=== PATIENT | male | born 1975 | race Caucasian/White ===

== ENCOUNTER 2018-03-11 04:29 | Emergency (ER) | payer SELFPAY ==
[~2018-03-11] VITALS: Ht 180.3 cm; Wt 70.3 kg
[2018-03-11 04:22] VITALS: BP 142/84
[~2018-03-11 04:29] MED LIST: GABAPENTIN800 MG ORAL; LEXAPRO20 MG ORAL; VICODIN ES 7.51 EAC1 ORAL
[2018-03-11 04:30] VITALS: BP 138/80
[2018-03-11] MEDS ORDERED: HydrOXYzine 50mg tab ORAL ONE (04:45)
[2018-03-11] MEDS ORDERED: VISTARIL50 MG ORAL (04:50)
[2018-03-11] MEDS ORDERED: IBUPROFEN600 MG ORAL (04:50)
--- NOTE | 2018-03-11 04:50 | Emergency Room Report ---
History of Present Illness General Chief Complaint: Pain Source: Patient Present Illness HPI This a 42-year-old male with no past medical history. He has a history of anxiety. He presents with 2 complaints. First he complaining of right foot pain. EMS picked him up from the street. He claimed that he lives in [place]. He's been walking for several days and developed blister to his feet. Now is very painful. They localized to the right foot. No nausea no vomiting. Worse with walking. Better with rest. Also claimed that he is anxious and has anxiety. Out of his Ativan. He claimed that last prescription was from [place] 2 months ago. Denies any fever chills but denies suicidal thoughts or homicidal thought. No other complaint. Allergies: Coded Allergies: No Known Allergies (Unverified , 03/11/18) Patient History Past Medical History: see triage record, old chart reviewed, psych hx Past Surgical History: other Pertinent Family History: none Social History: Denies: smoking Immunizations: other Reviewed Nursing Documentation: PMH: Agreed; PSxH: Agreed Nursing Documentation-PMH Past Medical History: No History, Except For Hx Neurological Problems: Yes - anxiety Review of Systems Eye: Denies: eye pain, blurred vision ENT: Denies: ear pain, nose congestion, throat swelling Respiratory: Denies: cough, shortness of breath Cardiovascular: Denies: chest pain, palpitations Gastrointestinal: Denies: abdominal pain, diarrhea, nausea, vomiting Musculoskeletal: Reports: muscle pain; Denies: back pain, joint pain Skin: Denies: rash Psychiatric: Reports: anxiety Neurological: Denies: headache, numbness Endocrine: Denies: increased thirst, increased urine Hematologic/Lymphatic: Denies: easy bruising All Other Systems: negative except mentioned in HPI Physical Exam Vital Signs Date Time Temp Pulse Resp B/P (MAP) Pulse Ox O2 Delivery O2 Flow Rate FiO2 03/11/18 04:22 98.8 80 16 142/84 98 Room Air vitals normal Sp02 EP Interpretation: reviewed, normal General Appearance: well appearing, no apparent distress, alert, other - unkempt Head: normocephalic, atraumatic Eyes: bilateral eye PERRL, bilateral eye EOMI ENT: hearing grossly normal, normal pharynx Neck: full range of motion, supple, no meningismus Respiratory: chest non-tender, lungs clear, normal breath sounds Cardiovascular #1: regular rate, rhythm, no murmur Gastrointestinal: normal bowel sounds, non tender, no mass, no organomegaly, no bruit, non-distended Musculoskeletal: back normal, gait/station normal, normal range of motion, other - Right foot: He has an area of skin denudement of the blister to the ball of his foot. No infection. No drainage. Pulses normal. Psychiatric: mood/affect normal Skin: warm/dry Medical Decision Making Diagnostic Impression: Primary Impression: Blister of foot without infection Qualified Codes: S90.821A - Blister (nonthermal), right foot, initial encounter Additional Impression: Anxiety ER Course Patient presents with blister to his foot. No infection or necrotizing fasciitis. Even know he claimed to be anxious he's very calm. No pressure speech. No patient that I would not prescribe refill on benzo. Last Vital Signs Date Time Temp Pulse Resp B/P (MAP) Pulse Ox O2 Delivery O2 Flow Rate FiO2 03/11/18 04:22 98.8 80 16 142/84 98 Room Air Status: improved Disposition: HOME, SELF-CARE Condition: Stable Scripts Hydroxyzine Pamoate* (VISTARIL*) 50 Mg Capsule 50 MG ORAL EVERY 6 HOURS, #20 TAB 0 Refills Prov: Juan Razo MD 03/11/18 Ibuprofen* (MOTRIN*) 600 Mg Tablet 600 MG ORAL THREE TIMES A DAY, #30 TAB 0 Refills Prov: Juan Razo MD 03/11/18 Additional Instructions: Abstain from drugs and alcohol. Elevate foot. Follow-up with your doctor in 7 days. Use crutches as needed. Return if symptom worsen. Juan Razo MD Mar 11, 2018 04:50
== END 2018-03-11 05:00 | disposition home or self-care (01) ==
LOC: EDBD 04:29 → EMR 04:50
DX: S90.821A Blister (nonthermal), right foot, initial encounter (principal); F41.9 Anxiety disorder, unspecified; X58.XXXA Exposure to other specified factors, initial encounter; Y92.9 Unspecified place or not applicable
CPT/HCPCS: 99283

== ENCOUNTER 2019-01-02 22:21 | Emergency (ER) | payer OTHER ==
[~2019-01-02] VITALS: Ht 180.3 cm; Wt 65.8 kg
[~2019-01-02 22:21] MED LIST changes: +IBUPROFEN600 MG ORAL; +VISTARIL50 MG ORAL
[2019-01-02 23:00] VITALS: BP 116/68
--- NOTE | 2019-01-02 23:00 | NUR ---
ED Nurse Note: Recieved pt BIBA with c/o suicidal ideations, tp states he attempted to run in front of bus, pt states he is going through divorce after 18 yrs of marriage and having hard time, denies homicidal ideations, hallucinations of any kind or any other complains or discomforts, pt tearing when talking, denies any previous psych history, pt gowned and placed close to nurses station and palced on suicidal precautins, will resume care as ordered and clsoely monitor.
--- NOTE | 2019-01-02 23:04 | NUR ---
ED Nurse Note: ALL OF PT BELONGINGS PLACED IN LOCKER #2. PRIMARY RN NOTIFIED.
[2019-01-03] MEDS ORDERED: DiphenhydrAMINE 50mg/ml Inj IVP ONE (00:15)
[2019-01-03] MEDS ORDERED: LORazepam Inj 2mg/ml 1ml IV ONE (00:15)
[2019-01-03] MEDS ORDERED: LORazepam Inj 2mg/ml 1ml ONE (00:29)
[2019-01-03] MEDS ORDERED: DiphenhydrAMINE 50mg/ml Inj ONE (00:30)
[2019-01-03 00:49] LABS: BASOPHILS % (AUTO) 2.6 % (0.0-2.0); EOSINOPHILS % (AUTO) 0.4 % (0.0-3.0); HEMATOCRIT 34.9 % (42.0-52.0); HEMOGLOBIN 11.2 G/DL (14.2-18.0); LYMPHOCYTES % (AUTO) 40.9 % (20.0-45.0); MEAN CORPUSCULAR VOLUME 91 FL (80-99); MONOCYTES % (AUTO) 13.6 % (1.0-10.0); NEUTROPHILS % (AUTO) 42.5 % (45.0-75.0); PLATELET COUNT 622 K/UL (150-450); RED BLOOD COUNT 3.83 M/UL (4.70-6.10); RED CELL DISTRIBUTION WIDTH 16.8 % (11.6-14.8); WHITE BLOOD COUNT 11.1 K/UL (4.8-10.8)
[2019-01-03 00:59] LABS: ANION GAP 6 mmol/L (5-15); BLOOD UREA NITROGEN 6 mg/dL (7-18); CALCIUM 9.5 MG/DL (8.5-10.1); CARBON DIOXIDE 30 MMOL/L (21-32); CHLORIDE 104 MMOL/L (98-107); CREATININE 0.9 MG/DL (0.55-1.30); POTASSIUM 3.8 MMOL/L (3.5-5.1); SODIUM 140 MMOL/L (136-145)
[2019-01-03 01:03] LABS: ALANINE AMINOTRANSFERASE 29 U/L (12-78); ALBUMIN/GLOBULIN RATIO 0.7 (1.0-2.7); ALKALINE PHOSPHATASE 107 U/L (46-116); ASPARTATE AMINO TRANSFERASE 25 U/L (15-37); BILIRUBIN,TOTAL 0.2 MG/DL (0.2-1.0)
[2019-01-03 02:00] VITALS: BP 121/64
--- NOTE | 2019-01-03 02:00 | NUR ---
ED Nurse Note: MEDS GIVEN EFFECTIVE, PT IN BED RESTING QUIETLY, CALM AND COOPERATIVE, IV SITE PATENT, NO CP, NO SOB OR LABORED BREATHING, REMAINS ON SUICIDAL PRECAUTIONS, NO CHANGES OR ATTEMPTS MADE, WILL CONTINUE TO MONITOR WHILE WAITING FOR MEDICAL CLEARANCE.
--- NOTE | 2019-01-03 02:35 | Emergency Room Report ---
History of Present Illness General Chief Complaint: Suicidal Source: Patient Present Illness HPI Patient presents with complaints of suicidal ideation he reports that he was thinking about jumping in front of a car Patient reports that he has been dealing with a lot of Stresses in his life including recent divorce he also reports that his brother had committed suicide Denies any chest pain denies any abdominal pain denies any back or flank pain Allergies: Coded Allergies: No Known Allergies (Unverified , 03/11/18) Patient History Past Medical History: see triage record Reviewed Nursing Documentation: PMH: Agreed; PSxH: Agreed Nursing Documentation-PMH Past Medical History: No History, Except For History Of Psychiatric Problem: Yes - DEPRESSION Hx Neurological Problems: Yes - anxiety Review of Systems All Other Systems: negative except mentioned in HPI Physical Exam Vital Signs Date Time Temp Pulse Resp B/P (MAP) Pulse Ox O2 Delivery O2 Flow Rate FiO2 01/02/19 22:34 98.2 134 16 116/68 (84) 98 Room Air Sp02 EP Interpretation: reviewed, normal General Appearance: well appearing, no apparent distress Head: normocephalic, atraumatic Eyes: bilateral eye PERRL, bilateral eye EOMI ENT: hearing grossly normal, normal pharynx, TMs + canals normal, uvula midline Neck: full range of motion, supple, no meningismus, no bony tend Respiratory: lungs clear, normal breath sounds, no rhonchi, no respiratory distress, no retraction, no accessory muscle use Cardiovascular #1: normal peripheral pulses, regular rate, rhythm, no edema, no gallop, no JVD, no murmur Gastrointestinal: normal bowel sounds, non tender, soft, no mass, no organomegaly, non-distended, no guarding, no hernia, no pulsatile mass, no rebound Genitourinary: no CVA tenderness Musculoskeletal: normal inspection Neurologic: oriented x3, responsive, 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 III-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 nml as tested, motor strength/ tone normal, sensory intact Psychiatric: mood/affect normal Skin: no rash Lymphatic: normal inspection, no adenopathy Medical Decision Making Diagnostic Impression: Primary Impression: Suicidal ideation Additional Impression: Medical clearance for psychiatric admission ER Course Given the patient's history and presentation extensive blood work and urine test is performed patient has further IV hydration as well Given the findings patient is found to be medically clear and stable patient had multiple Urine drug screen positive otherwise remains at this time hemodynamically stable and is appropriate for further Psychiatric evaluation Labs Test 01/03/19 00:03 01/03/19 00:21 Urine Opiates Screen Negative (NEGATIVE) Urine Barbiturates Screen Positive (NEGATIVE) Phencyclidine (PCP) Screen Negative (NEGATIVE) Urine Amphetamines Screen Positive (NEGATIVE) Urine Benzodiazepines Screen Positive (NEGATIVE) Urine Cocaine Screen Negative (NEGATIVE) Urine Marijuana (THC) Screen Positive (NEGATIVE) White Blood Count 11.1 K/UL (4.8-10.8) Red Blood Count 3.83 M/UL (4.70-6.10) Hemoglobin 11.2 G/DL (14.2-18.0) Hematocrit 34.9 % (42.0-52.0) Mean Corpuscular Volume 91 FL (80-99) Mean Corpuscular Hemoglobin 29.3 PG (27.0-31.0) Mean Corpuscular Hemoglobin Concent 32.2 G/DL (32.0-36.0) Red Cell Distribution Width 16.8 % (11.6-14.8) Platelet Count 622 K/UL (150-450) Mean Platelet Volume 4.7 FL (6.5-10.1) Neutrophils (%) (Auto) 42.5 % (45.0-75.0) Lymphocytes (%) (Auto) 40.9 % (20.0-45.0) Monocytes (%) (Auto) 13.6 % (1.0-10.0) Eosinophils (%) (Auto) 0.4 % (0.0-3.0) Basophils (%) (Auto) 2.6 % (0.0-2.0) Sodium Level 140 MMOL/L (136-145) Potassium Level 3.8 MMOL/L (3.5-5.1) Chloride Level 104 MMOL/L (98-107) Carbon Dioxide Level 30 MMOL/L (21-32) Anion Gap 6 mmol/L (5-15) Blood Urea Nitrogen 6 mg/dL (7-18) Creatinine 0.9 MG/DL (0.55-1.30) Estimat Glomerular Filtration Rate > 60 mL/min (>60) Glucose Level 84 MG/DL (74-106) Calcium Level 9.5 MG/DL (8.5-10.1) Total Bilirubin 0.2 MG/DL (0.2-1.0) Aspartate Amino Transf (AST/SGOT) 25 U/L (15-37) Alanine Aminotransferase (ALT/SGPT) 29 U/L (12-78) Alkaline Phosphatase 107 U/L (46-116) Total Protein 7.6 G/DL (6.4-8.2) Albumin 3.0 G/DL (3.4-5.0) Globulin 4.6 g/dL Albumin/Globulin Ratio 0.7 (1.0-2.7) Salicylates Level 6.1 ug/mL (2.8-20) Acetaminophen Level < 2 MCG/ML (10-30) Serum Alcohol 24 mg/dL Last Vital Signs Date Time Temp Pulse Resp B/P (MAP) Pulse Ox O2 Delivery O2 Flow Rate FiO2 01/02/19 23:00 98.2 16 116/68 98 Room Air 01/02/19 23:00 134 Status: improved Disposition: XFER TO PSYCH HOSP/UNIT Condition: Improved Referrals: [facility],REFERRING (PCP) Abundio Moses DO Jan 03, 2019 02:35
[2019-01-03 05:35] VITALS: BP 120/76
--- NOTE | 2019-01-03 05:40 | NUR ---
ED Nurse Note: PT BEING TRANSFERRED FOR PSYCHIATRIC CARE, REPORT CALLED TO [facility] AT [phone], REPORT GIVEN TO CHARGE NURSE YOJANA MEANS, WITH EXPECTED ETA, PT IN ROOM AWAKE AND ALERT, AWARE OF TRANSFER, PT IS BECOMING MORE ANXIOUS AND RESTLESS, MEDS GIVEN FOR CHRONIC BACK PAIN, REMAINS ON SUICIDAL PRECAUTIONS, STATES FEELS BETTER BUT STILL WILL RUN INTO TRAFFIC, DENIES CP, SOB, OR ANY OTHER COMPLAINTS, WILL CONTINUE TO CLOSELY MONITOR WHILE WAITING FOR AMBULANCE TRANSPORT.
[2019-01-03 07:10] VITALS: BP 120/76
--- NOTE | 2019-01-03 07:10 | NUR ---
ED Nurse Note: ER DISCHARGE NOTE: Patient is cleared to be transferred per ERMD, pt is aox4, on room air, with stable vital signs. pt being taken via gurney with [employer] transportation rig # [id number], pt was able to verbalize understanding, pt id band and iv site removed without complications. pt is able to ambulate with steady gait. pt took all belongings, given to [facility] along with transfer packet, nad noted during pt transport.
== END 2019-01-03 07:10 ==
LOC: EMR 23:14
DX: R45.851 Suicidal ideations (principal); F32.9 Major depressive disorder, single episode, unspecified; F41.9 Anxiety disorder, unspecified
CPT/HCPCS: 36415; 80053; 80307; 85025; 96361; 96374; 96375; G0480; G0481; J1200; Z7502; 99284